=== PATIENT | female | born 1965 | race Caucasian/White ===

== ENCOUNTER 2020-09-11 21:33 | Inpatient (IN) | payer MEDICAID, MEDICARE ==
[~2020-09-11] VITALS: Ht 170.2 cm; Wt 102.0 kg
[2020-09-11] MEDS ORDERED: SODIUM CHLORIDE FLUSH 10ML SYR IVF ONE (22:00)
[2020-09-11] MEDS ORDERED: SODIUM CHLORIDE 0.9% 1,000 ML IV ONE (22:00)
[2020-09-11 22:24] LABS: BASOPHILS % (AUTO) 0 % (0-1); EOSINOPHILS % (AUTO) 1 % (1-7); LYMPHOCYTES % (AUTO) 11 % (22-44); MEAN CORPUSCULAR HEMOGLOBIN 41.2 pg (27.0-34.8); MEAN CORPUSCULAR HGB CONC 34.7 g/dL (32.4-35.8); MEAN PLATELET VOLUME 10.3 fL (7.4-10.4); MONOCYTES % (AUTO) 10 % (2-9); NEUTROPHILS % (AUTO) 77 % (42-75); RED BLOOD COUNT 2.81 x10^6/uL (3.82-5.3); RED CELL DISTRIBUTION WIDTH 16.5 % (9.6-15.2)
[2020-09-11 22:36] LABS: ALANINE AMINOTRANSFERASE 41 U/L (12-78); ALBUMIN 1.2 g/dL (3.4-5.0); ANION GAP 4 mmol/L (5-15); CALCIUM 7.9 mg/dL (8.5-10.1); CHLORIDE 104 mmol/L (98-107); CREATININE 0.99 mg/dL (0.55-1.02)
[2020-09-11 22:37] LABS: INTERNATIONAL NORMALIZED RATIO 1.7 (0.93-1.1); PROTHROMBIN TIME 17.7 Seconds (9.6-11.5)
[2020-09-11 22:38] LABS: ALKALINE PHOSPHATASE 126 U/L (45-117); TOTAL PROTEIN 6.4 g/dL (6.4-8.2)
[2020-09-11 22:55] LABS: PLATELET COUNT 39 x10^3/uL (130-400)
[2020-09-11] MEDS ORDERED: PLEASE ENTER ALLERGIES MC SCH (23:00)
[2020-09-11] MEDS ORDERED: LACTULOSE 10 GM/15 ML UDC PO ONE (23:00)
[2020-09-11 23:16] LABS: BILIRUBIN,TOTAL 17.8 mg/dL (0.2-1.0)
--- NOTE | 2020-09-11 23:21 | NUR ---
Karina TEE notified plt - 40 and bilirubin of 17.8 for critical results
--- NOTE | 2020-09-11 23:57 | NUR ---
PATIENT HYPOTENSIVE, BUT ASYMPTOMATIC. PATIENT ALERT AND ORIENTED TIMES 4 AND ANSWERING QUESTIONS CALMLY AND COOPERATIVELY.
--- NOTE | 2020-09-11 23:59 | NUR ---
RADHA BADILLO AWARE OF HYPOTENSION AND INSTRUCTED RN TO PLACE ORDER FOR ALBUMIN 25% 100ML. ABY SAID GOAL BP IS IN THE 80'S SYSTOLIC
[2020-09-12] MEDS ORDERED: POTASSIUM CHLORIDE 20 MEQ TAB.ER.PRT PO ONE
[2020-09-12] MEDS: LACTULOSE 20 GM/30 ML UDC PO SCH ×3 (00:05→20:49)
[2020-09-12] MEDS ORDERED: POTASSIUM CHLORIDE 20 MEQ TAB.ER.PRT ONE (00:13)
[2020-09-12] MEDS ORDERED: ALBUMIN HUMAN 25% 100 ML IV ONE (00:30)
[2020-09-12] MEDS ORDERED: PLEASE ENTER ALLERGIES MC SCH ×2 (00:30→01:00)
[2020-09-12 01:24] LABS: BILIRUBIN, DIRECT 13.4 mg/dL (0.1-0.2)
[2020-09-12 02:00] VITALS: BP 87/53
[2020-09-12] MEDS: SODIUM CHLORIDE 0.9% 1,000 ML IV SCH ×3 (02:44→20:49)
[2020-09-12] MEDS ORDERED: MELATONIN 5 MG TABLET PO ONE ×2 (03:30→21:00)
[2020-09-12 06:58] VITALS: BP 87/51
[2020-09-12] MEDS ORDERED: PARO20TA98 PO (09:23)
[2020-09-12 10:41] LABS: ALANINE AMINOTRANSFERASE 39 U/L (12-78); ALBUMIN 1.5 g/dL (3.4-5.0); ANION GAP 7 mmol/L (5-15); CHLORIDE 108 mmol/L (98-107)
[2020-09-12 10:43] LABS: ALKALINE PHOSPHATASE 116 U/L (45-117)
[2020-09-12 10:53] LABS: BASOPHILS % (AUTO) 2 % (0-1); EOSINOPHILS % (AUTO) 2 % (1-7); LYMPHOCYTES % (AUTO) 7 % (22-44); MEAN CORPUSCULAR HEMOGLOBIN 41.4 pg (27.0-34.8); MEAN CORPUSCULAR HGB CONC 34.9 g/dL (32.4-35.8); MEAN PLATELET VOLUME 10.6 fL (7.4-10.4); MONOCYTES % (AUTO) 11 % (2-9); NEUTROPHILS % (AUTO) 79 % (42-75); RED CELL DISTRIBUTION WIDTH 16.4 % (9.6-15.2)
[2020-09-12 10:58] LABS: PLATELET COUNT 33 x10^3/uL (130-400)
[2020-09-12 11:12] LABS: CREATININE 0.97 mg/dL (0.55-1.02)
[2020-09-12 11:13] LABS: TOTAL PROTEIN 6.2 g/dL (6.4-8.2)
[2020-09-12 11:16] LABS: BILIRUBIN,TOTAL 18.5 mg/dL (0.2-1.0)
[2020-09-12 13:59] VITALS: BP 100/63
[2020-09-12 20:01] VITALS: BP 92/57
[2020-09-12] MEDS: MELATONIN 5 MG TABLET PO PRN (20:50)
[2020-09-13] VITALS: BP 94/58
[2020-09-13] MEDS: SODIUM CHLORIDE 0.9% 1,000 ML IV SCH ×2 (05:53→17:00)
[2020-09-13 05:55] LABS: BASOPHILS % (AUTO) 1 % (0-1); EOSINOPHILS % (AUTO) 2 % (1-7); LYMPHOCYTES % (AUTO) 10 % (22-44); MEAN CORPUSCULAR HEMOGLOBIN 41.7 pg (27.0-34.8); MEAN CORPUSCULAR HGB CONC 35.1 g/dL (32.4-35.8); MEAN PLATELET VOLUME 10.8 fL (7.4-10.4); MONOCYTES % (AUTO) 10 % (2-9); NEUTROPHILS % (AUTO) 77 % (42-75); RED BLOOD COUNT 2.85 x10^6/uL (3.82-5.3); RED CELL DISTRIBUTION WIDTH 16.2 % (9.6-15.2)
[2020-09-13 06:07] LABS: CHLORIDE 110 mmol/L (98-107)
[2020-09-13 06:12] LABS: ALBUMIN 1.5 g/dL (3.4-5.0); ANION GAP 4 mmol/L (5-15); CALCIUM 8.3 mg/dL (8.5-10.1); CREATININE 0.77 mg/dL (0.55-1.02)
[2020-09-13 06:15] LABS: PLATELET COUNT 35 x10^3/uL (130-400)
[2020-09-13 06:16] LABS: ANISOCYTOSIS 1+
[2020-09-13 06:17] LABS: <PLATELET ESTIMATE> DECREASED; <PLT MORPHOLOGY> NORMAL PLT MORPH
[2020-09-13] MEDS: FUROSEMIDE 20 MG TABLET PO SCH (09:19)
[2020-09-13] MEDS: SPIRONOLACTONE 25 MG TABLET PO SCH (09:19)
[2020-09-13] MEDS: LACTULOSE 20 GM/30 ML UDC PO SCH ×2 (09:19→20:57)
[2020-09-13 10:13] VITALS: BP 92/59
[2020-09-13] MEDS ORDERED: ONDA-89 PO (10:23)
[2020-09-13] MEDS ORDERED: FURO20TA3 PO (10:23)
[2020-09-13] MEDS ORDERED: SPIR100T4 PO (10:23)
[2020-09-13] MEDS ORDERED: NITR100C6 PO (10:23)
[2020-09-13 13:42] VITALS: BP 95/58
[2020-09-13] MEDS: ONDANSETRON 2MG/ML, 2ML IVPush PRN (13:59)
[2020-09-13] MEDS: HYDROcodone/APAP 5/325 TABLET PO PRN (16:07)
[2020-09-13 19:33] VITALS: BP 105/65
[2020-09-13 19:48] LABS: MICROSCOPIC INDICATED
[2020-09-13] MEDS: MELATONIN 5 MG TABLET PO PRN (20:57)
[2020-09-14 00:37] VITALS: BP 90/54
[2020-09-14] MEDS: HYDROcodone/APAP 5/325 TABLET PO PRN ×3 (00:44→19:58)
[2020-09-14 06:42] LABS: MEAN CORPUSCULAR HGB CONC 34.2 g/dL (32.4-35.8); MEAN PLATELET VOLUME 10.5 fL (7.4-10.4); RED CELL DISTRIBUTION WIDTH 17.1 % (9.6-15.2)
[2020-09-14 06:44] LABS: ALBUMIN 1.5 g/dL (3.4-5.0); ANION GAP 12 mmol/L (5-15); CALCIUM 8.5 mg/dL (8.5-10.1); CHLORIDE 108 mmol/L (98-107); PLATELET COUNT 36 x10^3/uL (130-400)
[2020-09-14 06:45] LABS: CREATININE 1.29 mg/dL (0.55-1.02)
[2020-09-14 07:05] LABS: MONOS#(MANUAL) 0.25 x10^3/uL (0.3-2.7); MONOS% (MANUAL) 2 % (2-9)
[2020-09-14 07:06] LABS: ANISOCYTOSIS 1+; BAND#(MANUAL) 3.72 x10^3/uL; BANDS%(MANUAL) 30 % (0-7); LYMPH#(MANUAL) 0.37 x10^3/uL (1-3.4); LYMPHS% (MANUAL) 3 % (22-44); SEG#(MANUAL) 8.06 x10^3/uL (1.8-6.8); SEGS% (MANUAL) 65 % (42-75)
[2020-09-14 07:07] LABS: <PLATELET ESTIMATE> DECREASED; <PLT MORPHOLOGY> NORMAL PLT MORPH
[2020-09-14 07:55] VITALS: BP 85/51
[2020-09-14] MEDS: LACTULOSE 20 GM/30 ML UDC PO SCH ×2 (08:02→21:00)
[2020-09-14] MEDS: CEFTRIAXONE 1,000 MG in DEXTROSE 5% 50 ML IVPB SCH (08:02)
[2020-09-14] MEDS: SPIRONOLACTONE 25 MG TABLET PO SCH (08:02)
[2020-09-14] MEDS: FUROSEMIDE 20 MG TABLET PO SCH (08:02)
[2020-09-14] MEDS ORDERED: SPIR100T4 PO (09:47)
[2020-09-14] MEDS ORDERED: FURO20TA3 PO (09:47)
[2020-09-14] MEDS ORDERED: AMOX500T PO (09:52)
[2020-09-14 12:29] LABS: MICROSCOPIC INDICATED
[2020-09-14 19:26] VITALS: BP 84/50
[2020-09-14] MEDS: MELATONIN 5 MG TABLET PO PRN (22:14)
[2020-09-15 00:49] VITALS: BP 81/44
[2020-09-15 06:10] LABS: MEAN CORPUSCULAR HEMOGLOBIN 40.8 pg (27.0-34.8); MEAN CORPUSCULAR HGB CONC 34.4 g/dL (32.4-35.8); RED BLOOD COUNT 2.89 x10^6/uL (3.82-5.3); RED CELL DISTRIBUTION WIDTH 16.6 % (9.6-15.2)
[2020-09-15 06:32] VITALS: BP 85/48
[2020-09-15 06:42] LABS: PLATELET COUNT 37 x10^3/uL (130-400)
[2020-09-15 06:43] LABS: ALBUMIN 1.3 g/dL (3.4-5.0); ANION GAP 5 mmol/L (5-15); CALCIUM 8.4 mg/dL (8.5-10.1); CHLORIDE 106 mmol/L (98-107)
[2020-09-15 06:44] LABS: BAND#(MANUAL) 1.58 x10^3/uL; BANDS%(MANUAL) 18 % (0-7); EOS#(MANUAL) 0.18 x10^3/uL (0.0-0.4); EOS% (MANUAL) 2 % (1-7); LYMPH#(MANUAL) 0.44 x10^3/uL (1-3.4); LYMPHS% (MANUAL) 5 % (22-44); MONOS% (MANUAL) 8 % (2-9); SEGS% (MANUAL) 67 % (42-75)
[2020-09-15 06:45] LABS: <PLATELET ESTIMATE> DECREASED; <PLT MORPHOLOGY> NORMAL PLT MORPH; ANISOCYTOSIS 1+
[2020-09-15 06:46] LABS: CREATININE 1.28 mg/dL (0.55-1.02)
[2020-09-15] MEDS: CEFTRIAXONE 1,000 MG in DEXTROSE 5% 50 ML IVPB SCH (07:52)
[2020-09-15] MEDS: LACTULOSE 20 GM/30 ML UDC PO SCH ×2 (09:00→20:31)
[2020-09-15] MEDS ORDERED: AZITHROMYCIN 500 MG TABLET PO ONE (11:00)
[2020-09-15] MEDS ORDERED: POTASSIUM CHLORIDE 20 MEQ TAB.ER.PRT PO ONE (12:30)
[2020-09-15 13:52] VITALS: BP 85/48
[2020-09-15] MEDS ORDERED: LIDOCAINE 1%, 10ML ONE (14:53)
[2020-09-15] MEDS: HYDROcodone/APAP 5/325 TABLET PO PRN ×2 (16:16→23:21)
[2020-09-15] MEDS: ONDANSETRON 2MG/ML, 2ML IVPush PRN ×2 (16:16→23:20)
[2020-09-15 19:29] VITALS: BP 84/45
[2020-09-16 00:14] VITALS: BP 74/38
[2020-09-16] MEDS ORDERED: PEDS NS BOLUS IV.SOLN 20ML/KG IVBOLUS ONE (00:30)
[2020-09-16] MEDS ORDERED: SODIUM CHLORIDE 0.9%, 500ML IVBOLUS ONE (00:30)
[2020-09-16] MEDS ORDERED: ALBUMIN HUMAN 5% 500 ML IV ONE (00:30)
[2020-09-16 06:42] VITALS: BP 87/51
[2020-09-16] MEDS: AZITHROMYCIN 250 MG TABLET PO SCH (07:48)
[2020-09-16] MEDS: CEFTRIAXONE 1,000 MG in DEXTROSE 5% 50 ML IVPB SCH (07:48)
[2020-09-16] MEDS: LACTULOSE 20 GM/30 ML UDC PO SCH ×2 (07:49→20:32)
[2020-09-16 07:55] LABS: BASOPHILS % (AUTO) 1 % (0-1); EOSINOPHILS % (AUTO) 1 % (1-7); LYMPHOCYTES % (AUTO) 9 % (22-44); MEAN CORPUSCULAR HEMOGLOBIN 40.9 pg (27.0-34.8); MEAN CORPUSCULAR HGB CONC 34.6 g/dL (32.4-35.8); MEAN PLATELET VOLUME 9.1 fL (7.4-10.4); MONOCYTES % (AUTO) 11 % (2-9); NEUTROPHILS % (AUTO) 79 % (42-75); RED BLOOD COUNT 2.85 x10^6/uL (3.82-5.3); RED CELL DISTRIBUTION WIDTH 16.5 % (9.6-15.2)
[2020-09-16 08:05] LABS: ALBUMIN 1.4 g/dL (3.4-5.0); ANION GAP 6 mmol/L (5-15); CALCIUM 7.8 mg/dL (8.5-10.1); CHLORIDE 106 mmol/L (98-107); CREATININE 0.94 mg/dL (0.55-1.02)
[2020-09-16 08:24] LABS: PLATELET COUNT 27 x10^3/uL (130-400)
[2020-09-16 09:18] LABS: <PLATELET ESTIMATE> DECREASED; <PLT MORPHOLOGY> NORMAL PLT MORPH; ANISOCYTOSIS 1+
[2020-09-16 12:29] VITALS: BP 93/58
[2020-09-16] MEDS: HYDROcodone/APAP 5/325 TABLET PO PRN (17:41)
[2020-09-16 19:47] VITALS: BP 99/53
[2020-09-17 02:00] VITALS: BP 89/53
[2020-09-17] MEDS: HYDROcodone/APAP 5/325 TABLET PO PRN ×2 (04:04→16:03)
[2020-09-17] MEDS: ONDANSETRON 2MG/ML, 2ML IVPush PRN (04:04)
[2020-09-17 06:29] VITALS: BP 94/57
[2020-09-17] MEDS: LACTULOSE 20 GM/30 ML UDC PO SCH (08:07)
[2020-09-17] MEDS: CEFTRIAXONE 1,000 MG in DEXTROSE 5% 50 ML IVPB SCH (08:07)
[2020-09-17] MEDS: AZITHROMYCIN 250 MG TABLET PO SCH (08:07)
[2020-09-17 12:28] VITALS: BP 92/53
== END 2020-09-17 16:05 | disposition home or self-care (01) | DRG 432 ==
LOC: ED 09-12 00:23 → EDIP 09-12 00:49 → 3N 09-12 00:50
PROVIDERS: ADMIT Student in an Organized Health Care Education/Training Program; ATTEND Internal Medicine
PROC: 0T9B70Z Drainage of Bladder with Drainage Device, Via Natural or Artificial Opening (ICD-10-PCS; 2020-09-13)
PROC: 0W9G30Z Drainage of Peritoneal Cavity with Drainage Device, Percutaneous Approach (ICD-10-PCS; principal; 2020-09-15)
DX: K70.31 Alcoholic cirrhosis of liver with ascites (principal); E43 Unspecified severe protein-calorie malnutrition; E87.1 Hypo-osmolality and hyponatremia; D68.9 Coagulation defect, unspecified; N17.9 Acute kidney failure, unspecified; N39.0 Urinary tract infection, site not specified; N81.10 Cystocele, unspecified; K72.90 Hepatic failure, unspecified without coma; D50.9 Iron deficiency anemia, unspecified; D69.6 Thrombocytopenia, unspecified; E87.6 Hypokalemia; F10.20 Alcohol dependence, uncomplicated; F17.210 Nicotine dependence, cigarettes, uncomplicated; F32.9 Major depressive disorder, single episode, unspecified; F41.1 Generalized anxiety disorder; H40.9 Unspecified glaucoma; M19.90 Unspecified osteoarthritis, unspecified site; Z82.3 Family history of stroke; Z82.49 Family history of ischemic heart disease and other diseases of the circulatory system; Z83.3 Family history of diabetes mellitus; Z91.14 Patient's other noncompliance with medication regimen; Z86.73 Personal history of transient ischemic attack (TIA), and cerebral infarction without residual deficits; Z88.5 Allergy status to narcotic agent; Z88.2 Allergy status to sulfonamides; Z88.8 Allergy status to other drugs, medicaments and biological substances
CPT/HCPCS: 36415; 49083; 71045; 80053; 80069; 81001; 82140; 82248; 82607; 83690; 85025; 85610; 85730; 87077; 87086; 87186; 99285; G0378; J0696; J2405; P9045; P9047; J7030; J7040

== ENCOUNTER 2020-10-05 16:40 | Inpatient (IN) | payer MEDICARE ==
[~2020-10-05] VITALS: Ht 170.2 cm; Wt 103.3 kg
[~2020-10-05 16:40] MED LIST: AMOX500T PO; ETOMIDATE 20 MG/10 ML ONE; FURO20TA3 PO; MIDAZOLAM 1 MG/ML, 5ML ONE; NITR100C6 PO; ONDA-89 PO; PARO20TA98 PO; PROPOFOL 10 MG/ML, 100ML IV ONE; SPIR100T4 PO; VECURONIUM 10 MG ONE
--- NOTE | 2020-10-05 16:45 | NUR ---
BIB EMS FROM [facility] [place] FOR SOB AND ASCITES OF ABDOMEN. PT STATES SOB X 2 DAYS WITH EMS FINDING PT WITH ROOM AIR OF 68% PLACED ON 15 LPM FOR SAT OF 90. PT TESTED FOR COVID AT [facility] [place] WITH POSITIVE TEST. PT IS NON DIABETIC FOUND WITH FOUND WITH BGL OF 58 100 ML D10 ADMIN FOLLOW UP BGL 47. 250ML OF D 10 GIVEN RECHECK BGL OF 103. 1 GRAM ROCEPHIN GIVEN AT FACILITY AND 500 OF AZITHROMYCIN. 10 MG DECADRON GIVEN AND IRVERMECTIN PO. PT PLACED ON OPTIFLOW SETTINGS OF 50 L AND 100% BY RT.
[2020-10-05 17:42] LABS: MEAN CORPUSCULAR HEMOGLOBIN 39.8 pg (27.0-34.8); MEAN CORPUSCULAR HGB CONC 33.9 g/dL (32.4-35.8); RED BLOOD COUNT 3.06 x10^6/uL (3.82-5.3); RED CELL DISTRIBUTION WIDTH 16.1 % (9.6-15.2)
[2020-10-05 17:54] LABS: ALANINE AMINOTRANSFERASE 70 U/L (12-78); ANION GAP 8 mmol/L (5-15); CALCIUM 7.7 mg/dL (8.5-10.1); CHLORIDE 108 mmol/L (98-107); CREATININE 1.25 mg/dL (0.55-1.02)
[2020-10-05 17:56] LABS: ALKALINE PHOSPHATASE 189 U/L (45-117); BILIRUBIN,TOTAL 10.5 mg/dL (0.2-1.0); TOTAL PROTEIN 6.2 g/dL (6.4-8.2)
[2020-10-05] MEDS ORDERED: FENTANYL PF 100 MCG/2ML ONE (18:02)
--- NOTE | 2020-10-05 18:05 | NUR ---
PT EXPRESSES PAIN AT 10/10 ALL OVER BODY. MD MADE AWARE. VERBAL ORDER FOR 50 MCG OF FENTANYL RECIEVED.
[2020-10-05 18:07] LABS: INTERNATIONAL NORMALIZED RATIO 1.93 (0.93-1.1)
[2020-10-05 18:19] LABS: PLATELET COUNT 14 x10^3/uL (130-400)
[2020-10-05] MEDS ORDERED: FUROSEMIDE 40 MG/4 ML IV ONE (18:30)
[2020-10-05] MEDS ORDERED: ALBUMIN HUMAN 25% 100 ML IV ONE (18:30)
[2020-10-05 18:31] LABS: <PLATELET ESTIMATE> DECREASED; BAND#(MANUAL) 0.92 x10^3/uL; BANDS%(MANUAL) 12 % (0-7); LYMPH#(MANUAL) 0.31 x10^3/uL (1-3.4); LYMPHS% (MANUAL) 4 % (22-44); METAMYELOCYTES# (MANUAL) 0.15 x10^3/uL (0-0); METAMYELOCYTES% (MANUAL) 2 % (0-1); MONOS#(MANUAL) 0.46 x10^3/uL (0.3-2.7); MONOS% (MANUAL) 6 % (2-9); SEG#(MANUAL) 5.85 x10^3/uL (1.8-6.8); SEGS% (MANUAL) 76 % (42-75)
[2020-10-05 18:32] LABS: <PLT MORPHOLOGY> NORMAL PLT MORPH; ANISOCYTOSIS 1+
[2020-10-05] MEDS ORDERED: LIDOCAINE 1%, 10ML ONE (18:35)
--- NOTE | 2020-10-05 19:02 | NUR ---
ALBUMIN STARTED. HOSPITALIST BEDSIDE FOR ASSESSMENT. IR IN ROOM PEFORMING PARACENTESIS.
[2020-10-05] MEDS: NOREPINEPHRINE 8 MG in SODIUM CHLORIDE 0.9% 242 ML IV PRN (19:12)
--- NOTE | 2020-10-05 19:13 | NUR ---
LEVOPHED OK TO RUN VIA PIV PER
[2020-10-05] MEDS ORDERED: PANTOPRAZOLE 40 MG IV ONE (19:26)
[2020-10-05] MEDS ORDERED: DEXAMETHASONE 4 MG/ML, 1ML ONE (19:26)
[2020-10-05] MEDS ORDERED: GLUCAGON 1 MG IM PRN (19:30)
[2020-10-05] MEDS ORDERED: LABETALOL 5MG/ML, 20ML IVPush PRN (19:30)
[2020-10-05] MEDS ORDERED: PIPERACILLIN/TAZO 4.5 GM in DEXTROSE 5% 50 ML IVPB SCH (19:30)
[2020-10-05] MEDS ORDERED: PHARMACY MAY ADJ FOR RENAL FX MC PRN (19:30)
[2020-10-05] MEDS ORDERED: DEXTROSE 4 GM TAB.CHEW PO PRN (19:30)
[2020-10-05] MEDS ORDERED: LACTULOSE 10 GM/15 ML UDC PO PRN (19:30)
[2020-10-05] MEDS ORDERED: ACETAMINOPHEN 500 MG TABLET PO PRN (19:30)
[2020-10-05] MEDS ORDERED: HEPARIN 5,000 UNITS/ML, 1ML SQ SCH (19:30)
--- NOTE | 2020-10-05 19:34 | NUR ---
7.7 LITERS OF FLUID PULLED OFF PT. PT RESTING IN GURNEY LAYING ON RIGHT SIDE FOR COMFORT.
[2020-10-05] MEDS: DEXAMETHASONE 4 MG/ML, 1ML IVPush SCH (19:42)
[2020-10-05] MEDS: PANTOPRAZOLE 40 MG IV IV SCH (19:42)
[2020-10-05] MEDS ORDERED: ONDANSETRON 2MG/ML, 2ML ONE (19:48)
[2020-10-05] MEDS: ONDANSETRON 2MG/ML, 2ML IVPB PRN (19:51)
[2020-10-05] MEDS ORDERED: PIPERACILLIN/TAZO 4.5 GM in DEXTROSE 5% 100 ML IVPB SCH (20:00)
[2020-10-05] MEDS ORDERED: FENTANYL PF 100 MCG/2ML IVPush PRN (20:00)
[2020-10-05 20:16] VITALS: BP 113/53
[2020-10-05 20:34] VITALS: BP 118/49
[2020-10-05 21:00] VITALS: BP 100/33
[2020-10-05] MEDS: ASCORBIC ACID 500 MG TABLET PO SCH (21:57)
[2020-10-05] MEDS: INSULIN LISPRO 100 UNITS/ML, PEN SQ-INSULIN SCH (22:11)
[2020-10-05] MEDS: SODIUM CHLORIDE FLUSH 10ML SYR IVF SCH (22:11)
[2020-10-05 22:13] VITALS: BP 85/50
[2020-10-05 22:15] VITALS: BP 100/56
[2020-10-05] MEDS ORDERED: REMDESIVIR 100 MG IV SCH (22:30)
[2020-10-05] MEDS ORDERED: REMDESIVIR 200 MG in SODIUM CHLORIDE 0.9% 250 ML IVPB ONE (23:00)
[2020-10-05] MEDS: ALBUMIN HUMAN 25% 100 ML IV SCH (23:38)
[2020-10-06] MEDS ORDERED: PIPERACILLIN/TAZO 4.5 GM in DEXTROSE 5% 100 ML IVPB SCH (02:00)
[2020-10-06] MEDS: ONDANSETRON 2MG/ML, 2ML IVPB PRN ×2 (02:12→09:47)
[2020-10-06] MEDS: DEXAMETHASONE 4 MG/ML, 1ML IVPush SCH (02:12)
[2020-10-06] MEDS: NOREPINEPHRINE 8 MG in SODIUM CHLORIDE 0.9% 242 ML IV PRN ×2 (05:13→20:18)
[2020-10-06 05:14] LABS: MEAN CORPUSCULAR HGB CONC 33.9 g/dL (32.4-35.8); MEAN PLATELET VOLUME 9.4 fL (7.4-10.4); RED BLOOD COUNT 3.13 x10^6/uL (3.82-5.3)
[2020-10-06 05:16] LABS: ALANINE AMINOTRANSFERASE 62 U/L (12-78); ALBUMIN 1.7 g/dL (3.4-5.0); ANION GAP 10 mmol/L (5-15); CALCIUM 7.8 mg/dL (8.5-10.1); CHLORIDE 107 mmol/L (98-107); CREATININE 1.34 mg/dL (0.55-1.02)
[2020-10-06 05:19] LABS: ALKALINE PHOSPHATASE 172 U/L (45-117); BILIRUBIN,TOTAL 11.1 mg/dL (0.2-1.0); TOTAL PROTEIN 6.7 g/dL (6.4-8.2)
[2020-10-06 05:31] LABS: PLATELET COUNT 22 x10^3/uL (130-400)
[2020-10-06 06:02] LABS: BAND#(MANUAL) 2.34 x10^3/uL; BANDS%(MANUAL) 19 % (0-7); LYMPH#(MANUAL) 0.62 x10^3/uL (1-3.4); LYMPHS% (MANUAL) 5 % (22-44)
[2020-10-06 06:03] LABS: MONOS#(MANUAL) 0.12 x10^3/uL (0.3-2.7); MONOS% (MANUAL) 1 % (2-9); SEG#(MANUAL) 9.23 x10^3/uL (1.8-6.8); SEGS% (MANUAL) 75 % (42-75)
[2020-10-06 06:04] LABS: <PLATELET ESTIMATE> DECREASED; <PLT MORPHOLOGY> NORMAL PLT MORPH; ANISOCYTOSIS 2+
[2020-10-06] MEDS: INSULIN LISPRO 100 UNITS/ML, PEN SQ-INSULIN SCH ×4 (06:23→21:00)
[2020-10-06] MEDS: ALBUMIN HUMAN 25% 100 ML IV SCH ×3 (06:33→21:25)
[2020-10-06] MEDS ORDERED: AZITHROMYCIN 500 MG in SODIUM CHLORIDE 0.9% 250 ML IV SCH (08:00)
[2020-10-06] MEDS ORDERED: ASCORBIC ACID 250 MG TAB ONE (08:00)
[2020-10-06] MEDS: ZINC SULFATE 220 MG CAPSULE PO SCH (08:57)
[2020-10-06] MEDS: CEFTRIAXONE 2 GM in DEXTROSE 5% 50 ML IVPB SCH (08:57)
[2020-10-06] MEDS: ASCORBIC ACID 500 MG TABLET PO SCH ×2 (08:57→21:25)
[2020-10-06] MEDS: SODIUM CHLORIDE FLUSH 10ML SYR IVF SCH ×2 (08:58→21:25)
[2020-10-06] MEDS: MIDODRINE 5 MG TABLET PO SCH ×3 (08:58→21:25)
[2020-10-06] MEDS ORDERED: REMDESIVIR 100 MG IV SCH (09:00)
[2020-10-06] MEDS ORDERED: HYDROmorphone 1 MG/ML, 1ML INJ IV PRN (10:30)
[2020-10-06] MEDS ORDERED: LORazepam 2 MG/ML, 1ML IVPush PRN (10:30)
[2020-10-06] MEDS ORDERED: PHARMACY MAY ADJ FOR RENAL FX MC SCH (14:00)
[2020-10-06] MEDS ORDERED: LIDOCAINE-MPF 1%, 2ML ENDO PRN (14:00)
[2020-10-06] MEDS ORDERED: MIDAZOLAM HCL 50 MG in SODIUM CHLORIDE 0.9% 40 ML IV PRN (14:00)
[2020-10-06] MEDS: METRONIDAZOLE PMX 500MG/100ML 100 ML IV SCH ×2 (14:59→21:25)
[2020-10-06] MEDS ORDERED: SODIUM BICARB 8.4%, 50ML SYRINGE ONE (15:11)
[2020-10-06] MEDS ORDERED: SODIUM BICARBONATE 1 MEQ/ML, 50ML VIAL IVPush ONE (15:30)
[2020-10-06] MEDS ORDERED: VECURONIUM 10 MG ONE (18:40)
[2020-10-06] MEDS ORDERED: VECURONIUM 10 MG IVPush ONE (19:30)
[2020-10-06] MEDS: VECURONIUM 50 MG in SODIUM CHLORIDE 0.9% 50 ML IV PRN (20:06)
[2020-10-06] MEDS: FENTANYL PF 1,000 MCG in SODIUM CHLORIDE 0.9% 80 ML IV PRN (20:16)
[2020-10-06] MEDS: PROPOFOL 100 ML IV PRN (20:19)
[2020-10-06] MEDS: PANTOPRAZOLE 40 MG IV IV SCH (21:25)
[2020-10-07] MEDS: REMDESIVIR 100 MG in SODIUM CHLORIDE 0.9% 250 ML IVPB SCH ×2 (00:09→23:27)
[2020-10-07] MEDS: VECURONIUM 50 MG in SODIUM CHLORIDE 0.9% 50 ML IV PRN (02:40)
[2020-10-07] MEDS: INSULIN LISPRO 100 UNITS/ML, PEN SQ-INSULIN SCH ×4 (03:00→21:00)
[2020-10-07 04:01] LABS: ALBUMIN 2.2 g/dL (3.4-5.0); ANION GAP 10 mmol/L (5-15); CALCIUM 7.3 mg/dL (8.5-10.1); CHLORIDE 107 mmol/L (98-107)
[2020-10-07 04:04] LABS: ALANINE AMINOTRANSFERASE 45 U/L (12-78); ALKALINE PHOSPHATASE 130 U/L (45-117); BILIRUBIN,TOTAL 10.1 mg/dL (0.2-1.0); CREATININE 1.75 mg/dL (0.55-1.02); TOTAL PROTEIN 6.2 g/dL (6.4-8.2)
[2020-10-07 04:08] LABS: MEAN CORPUSCULAR HEMOGLOBIN 40.6 pg (27.0-34.8); MEAN CORPUSCULAR HGB CONC 34.3 g/dL (32.4-35.8); MEAN PLATELET VOLUME 10.5 fL (7.4-10.4); RED BLOOD COUNT 2.67 x10^6/uL (3.82-5.3); RED CELL DISTRIBUTION WIDTH 16.5 % (9.6-15.2)
[2020-10-07 04:23] LABS: PLATELET COUNT 23 x10^3/uL (130-400)
[2020-10-07] MEDS: ALBUMIN HUMAN 25% 100 ML IV SCH ×3 (05:38→21:32)
[2020-10-07] MEDS: PROPOFOL 100 ML IV PRN ×4 (05:38→23:26)
[2020-10-07] MEDS: METRONIDAZOLE PMX 500MG/100ML 100 ML IV SCH ×3 (05:38→21:26)
[2020-10-07 05:39] LABS: BAND#(MANUAL) 2.45 x10^3/uL; BANDS%(MANUAL) 19 % (0-7); LYMPH#(MANUAL) 0.39 x10^3/uL (1-3.4); LYMPHS% (MANUAL) 3 % (22-44); MONOS#(MANUAL) 0.65 x10^3/uL (0.3-2.7); MONOS% (MANUAL) 5 % (2-9); SEG#(MANUAL) 9.42 x10^3/uL (1.8-6.8); SEGS% (MANUAL) 73 % (42-75)
[2020-10-07 05:40] LABS: <PLATELET ESTIMATE> DECREASED; <PLT MORPHOLOGY> NORMAL PLT MORPH; ANISOCYTOSIS 2+
[2020-10-07] MEDS: CEFTRIAXONE 2 GM in DEXTROSE 5% 50 ML IVPB SCH (08:17)
[2020-10-07] MEDS ORDERED: ASCORBIC ACID 250 MG TAB ONE (08:34)
[2020-10-07] MEDS: ASCORBIC ACID 500 MG TABLET PO SCH ×2 (09:00→21:25)
[2020-10-07] MEDS: MIDODRINE 5 MG TABLET PO SCH ×3 (09:18→21:25)
[2020-10-07] MEDS: ZINC SULFATE 220 MG CAPSULE PO SCH (09:19)
[2020-10-07] MEDS: DEXAMETHASONE 4 MG/ML, 1ML IVPush SCH (09:19)
[2020-10-07] MEDS: SODIUM CHLORIDE FLUSH 10ML SYR IVF SCH ×2 (09:20→21:25)
[2020-10-07] MEDS: AZITHROMYCIN 500 MG TABLET PO SCH (09:20)
[2020-10-07] MEDS: NOREPINEPHRINE 8 MG in SODIUM CHLORIDE 0.9% 242 ML IV PRN ×2 (09:20→23:26)
[2020-10-07] MEDS: FENTANYL PF 1,000 MCG in SODIUM CHLORIDE 0.9% 80 ML IV PRN ×2 (11:14→23:27)
[2020-10-07] MEDS: PANTOPRAZOLE 40 MG IV IV SCH (21:25)
[2020-10-08] MEDS: INSULIN LISPRO 100 UNITS/ML, PEN SQ-INSULIN SCH ×4 (03:00→21:00)
[2020-10-08 05:26] LABS: POTASSIUM,URINE RANDOM 54 mmol/L
[2020-10-08 05:27] LABS: CHLORIDE,URINE RANDOM < 10 mmol/L; SODIUM,URINE RANDOM < 5 mmol/L
[2020-10-08 05:29] LABS: MEAN CORPUSCULAR HEMOGLOBIN 40.7 pg (27.0-34.8); MEAN CORPUSCULAR HGB CONC 34.1 g/dL (32.4-35.8); MEAN PLATELET VOLUME 9.3 fL (7.4-10.4); RED BLOOD COUNT 2.46 x10^6/uL (3.82-5.3)
[2020-10-08 05:32] LABS: PLATELET COUNT 17 x10^3/uL (130-400)
[2020-10-08 05:34] LABS: ALANINE AMINOTRANSFERASE 42 U/L (12-78); ALBUMIN 2.8 g/dL (3.4-5.0); ANION GAP 9 mmol/L (5-15); CALCIUM 7.5 mg/dL (8.5-10.1); CHLORIDE 110 mmol/L (98-107); CREATININE 1.97 mg/dL (0.55-1.02)
[2020-10-08 05:36] LABS: ALKALINE PHOSPHATASE 113 U/L (45-117); BILIRUBIN,TOTAL 9.3 mg/dL (0.2-1.0); TOTAL PROTEIN 6.2 g/dL (6.4-8.2)
[2020-10-08 05:46] LABS: MICROSCOPIC INDICATED
[2020-10-08 05:50] LABS: <PLATELET ESTIMATE> DECREASED; <PLT MORPHOLOGY> NORMAL PLT MORPH; ANISOCYTOSIS 2+; BAND#(MANUAL) 1.59 x10^3/uL; BANDS%(MANUAL) 15 % (0-7); LYMPH#(MANUAL) 0.53 x10^3/uL (1-3.4); LYMPHS% (MANUAL) 5 % (22-44); MONOS#(MANUAL) 0.32 x10^3/uL (0.3-2.7); MONOS% (MANUAL) 3 % (2-9); SEG#(MANUAL) 8.16 x10^3/uL (1.8-6.8); SEGS% (MANUAL) 77 % (42-75)
[2020-10-08 05:51] LABS: OVALOCYTES 1+
[2020-10-08] MEDS: METRONIDAZOLE PMX 500MG/100ML 100 ML IV SCH ×3 (06:22→21:24)
[2020-10-08] MEDS: ALBUMIN HUMAN 25% 100 ML IV SCH ×3 (06:22→21:42)
[2020-10-08] MEDS: CEFTRIAXONE 2 GM in DEXTROSE 5% 50 ML IVPB SCH (08:43)
[2020-10-08] MEDS: DEXAMETHASONE 4 MG/ML, 1ML IVPush SCH (08:44)
[2020-10-08] MEDS: ASCORBIC ACID 500 MG TABLET PO SCH ×2 (08:44→21:24)
[2020-10-08] MEDS: ZINC SULFATE 220 MG CAPSULE PO SCH (08:44)
[2020-10-08] MEDS: MIDODRINE 5 MG TABLET PO SCH ×3 (08:45→21:23)
[2020-10-08] MEDS: AZITHROMYCIN 500 MG TABLET PO SCH (08:45)
[2020-10-08] MEDS: SODIUM CHLORIDE FLUSH 10ML SYR IVF SCH ×2 (08:45→21:24)
[2020-10-08] MEDS: FENTANYL PF 1,000 MCG in SODIUM CHLORIDE 0.9% 80 ML IV PRN ×2 (11:22→21:23)
[2020-10-08] MEDS: PROPOFOL 100 ML IV PRN ×2 (14:54→21:23)
[2020-10-08] MEDS: PANTOPRAZOLE 40 MG IV IV SCH (21:24)
[2020-10-09] MEDS: REMDESIVIR 100 MG in SODIUM CHLORIDE 0.9% 250 ML IVPB SCH ×2 (00:06→22:44)
[2020-10-09] MEDS: PROPOFOL 100 ML IV PRN ×6 (00:06→22:43)
[2020-10-09] MEDS: INSULIN LISPRO 100 UNITS/ML, PEN SQ-INSULIN SCH (03:00)
[2020-10-09 04:54] LABS: MEAN CORPUSCULAR HEMOGLOBIN 40.8 pg (27.0-34.8); MEAN CORPUSCULAR HGB CONC 34.5 g/dL (32.4-35.8); MEAN PLATELET VOLUME 9.1 fL (7.4-10.4); RED BLOOD COUNT 2.21 x10^6/uL (3.82-5.3); RED CELL DISTRIBUTION WIDTH 16.6 % (9.6-15.2)
[2020-10-09 04:57] LABS: MICROSCOPIC INDICATED
[2020-10-09 05:00] LABS: POTASSIUM,URINE RANDOM 54 mmol/L
[2020-10-09 05:02] LABS: PLATELET COUNT 16 x10^3/uL (130-400)
[2020-10-09 05:03] LABS: ALBUMIN 2.8 g/dL (3.4-5.0); ANION GAP 9 mmol/L (5-15); CALCIUM 7.7 mg/dL (8.5-10.1); CHLORIDE 109 mmol/L (98-107); CHLORIDE,URINE RANDOM < 10 mmol/L; SODIUM,URINE RANDOM < 5 mmol/L
[2020-10-09 05:07] LABS: ALKALINE PHOSPHATASE 97 U/L (45-117); BILIRUBIN,TOTAL 8.4 mg/dL (0.2-1.0); CREATININE 2.46 mg/dL (0.55-1.02)
[2020-10-09 05:08] LABS: % IRON SATURATION 49 % (20-55); ALANINE AMINOTRANSFERASE 37 U/L (12-78); IRON LEVEL 39 mcg/dL (50-170); TOTAL IRON BINDING CAPACITY 79 mcg/dL (250-450)
[2020-10-09 05:09] LABS: CREATINE KINASE, TOTAL 39 U/L (26-192); TRIGLYCERIDES 304 mg/dL (50-200)
[2020-10-09 05:26] LABS: BAND#(MANUAL) 2.77 x10^3/uL; BANDS%(MANUAL) 21 % (0-7); LYMPHS% (MANUAL) 3 % (22-44); MONOS#(MANUAL) 0.13 x10^3/uL (0.3-2.7); MONOS% (MANUAL) 1 % (2-9); SEGS% (MANUAL) 75 % (42-75)
[2020-10-09 05:27] LABS: <PLATELET ESTIMATE> DECREASED; <PLT MORPHOLOGY> NORMAL PLT MORPH; ANISOCYTOSIS 1+; OVALOCYTES 1+
[2020-10-09] MEDS: METRONIDAZOLE PMX 500MG/100ML 100 ML IV SCH ×3 (06:16→21:31)
[2020-10-09] MEDS: ALBUMIN HUMAN 25% 100 ML IV SCH ×3 (06:16→22:43)
[2020-10-09] MEDS: CEFTRIAXONE 2 GM in DEXTROSE 5% 50 ML IVPB SCH (08:47)
[2020-10-09] MEDS: MIDODRINE 5 MG TABLET PO SCH ×3 (08:48→21:31)
[2020-10-09] MEDS: DEXAMETHASONE 4 MG/ML, 1ML IVPush SCH (08:48)
[2020-10-09] MEDS: ZINC SULFATE 220 MG CAPSULE PO SCH (08:48)
[2020-10-09] MEDS: ASCORBIC ACID 500 MG TABLET PO SCH ×2 (08:48→21:30)
[2020-10-09] MEDS: SODIUM CHLORIDE FLUSH 10ML SYR IVF SCH ×2 (08:49→21:31)
[2020-10-09] MEDS: THIAMINE 100MG TABLET PO SCH (08:49)
[2020-10-09] MEDS: AZITHROMYCIN 500 MG TABLET PO SCH (08:49)
[2020-10-09] MEDS: FENTANYL PF 1,000 MCG in SODIUM CHLORIDE 0.9% 80 ML IV PRN ×2 (08:59→18:20)
[2020-10-09] MEDS: LACTULOSE 20 GM/30 ML UDC PO SCH ×3 (10:27→21:31)
[2020-10-09] MEDS ORDERED: ERGOCALCIFEROL 50,000 UNIT CAPSULE PO SCH (12:00)
[2020-10-09] MEDS ORDERED: ASCORBIC ACID 250 MG TAB ONE (21:24)
[2020-10-09] MEDS: PANTOPRAZOLE 40 MG IV IV SCH (21:31)
[2020-10-10] MEDS: FENTANYL PF 1,000 MCG in SODIUM CHLORIDE 0.9% 80 ML IV PRN (03:33)
[2020-10-10] MEDS: METRONIDAZOLE PMX 500MG/100ML 100 ML IV SCH ×2 (05:48→13:29)
[2020-10-10 05:50] LABS: MEAN CORPUSCULAR HEMOGLOBIN 41.4 pg (27.0-34.8); MEAN CORPUSCULAR HGB CONC 32.9 g/dL (32.4-35.8); MEAN PLATELET VOLUME 11.7 fL (7.4-10.4); PLATELET COUNT 61 x10^3/uL (130-400); RED CELL DISTRIBUTION WIDTH 18.8 % (9.6-15.2)
[2020-10-10 05:59] LABS: ANION GAP 17 mmol/L (5-15); CALCIUM 7.8 mg/dL (8.5-10.1); CHLORIDE 107 mmol/L (98-107); CREATININE 3.54 mg/dL (0.55-1.02)
[2020-10-10] MEDS: PROPOFOL 100 ML IV PRN ×3 (06:30→16:29)
[2020-10-10] MEDS: ALBUMIN HUMAN 25% 100 ML IV SCH ×2 (06:30→16:05)
[2020-10-10] MEDS: DEXTROSE 50%, 50ML SYRINGE IVPush PRN ×3 (06:51→10:49)
[2020-10-10 07:11] LABS: BAND#(MANUAL) 3.22 x10^3/uL; BANDS%(MANUAL) 8 % (0-7); LYMPH#(MANUAL) 1.61 x10^3/uL (1-3.4); LYMPHS% (MANUAL) 4 % (22-44); METAMYELOCYTES% (MANUAL) 2 % (0-1); MONOS% (MANUAL) 2 % (2-9); SEG#(MANUAL) 33.77 x10^3/uL (1.8-6.8); SEGS% (MANUAL) 84 % (42-75)
[2020-10-10 07:12] LABS: <PLATELET ESTIMATE> DECREASED; ANISOCYTOSIS 1+; LARGE PLATELETS 1+
[2020-10-10 07:13] LABS: PMNS WITH VACUOLES 1+; POLYCHROMASIA 1+
[2020-10-10] MEDS: CEFTRIAXONE 2 GM in DEXTROSE 5% 50 ML IVPB SCH (07:40)
[2020-10-10] MEDS: SODIUM BICARBONATE 8.4% 150 MEQ in DEXTROSE 5% 1,000 ML IV SCH ×2 (07:40→18:29)
[2020-10-10] MEDS: DEXAMETHASONE 4 MG/ML, 1ML IVPush SCH (09:00)
[2020-10-10] MEDS ORDERED: DEXAMETHASONE 4 MG/ML, 5ML ONE (10:20)
[2020-10-10] MEDS: SODIUM CHLORIDE FLUSH 10ML SYR IVF SCH (10:33)
[2020-10-10] MEDS: ZINC SULFATE 220 MG CAPSULE PO SCH (10:33)
[2020-10-10] MEDS: AZITHROMYCIN 500 MG TABLET PO SCH (10:33)
[2020-10-10] MEDS: THIAMINE 100MG TABLET PO SCH (10:33)
[2020-10-10] MEDS: MIDODRINE 5 MG TABLET PO SCH ×2 (10:33→16:05)
[2020-10-10] MEDS: ASCORBIC ACID 500 MG TABLET PO SCH (10:34)
[2020-10-10] MEDS: LACTULOSE 20 GM/30 ML UDC PO SCH ×2 (10:34→16:05)
[2020-10-10] MEDS: NOREPINEPHRINE 8 MG in SODIUM CHLORIDE 0.9% 242 ML IV PRN (13:44)
[2020-10-10] MEDS: LORazepam 2 MG/ML, 1ML IVPush PRN ×3 (16:29→18:48)
[2020-10-10] MEDS ORDERED: morphine SULFATE 10 MG/ML, 1ML ONE (20:03)
[2020-10-10] MEDS ORDERED: MORPHINE SULFATE 4 MG/ML, 1ML IV ONE (20:30)
[2020-10-10] MEDS ORDERED: MORPHINE SULFATE 4 MG/ML, 1ML IV PRN (20:30)
[2020-10-10] MEDS ORDERED: ONDANSETRON 2MG/ML, 2ML IV PRN (20:30)
[2020-10-10] MEDS ORDERED: LORazepam 2 MG/ML, 1ML IV PRN (20:30)
[2020-10-10] MEDS ORDERED: LORazepam 2 MG/ML, 1ML IV ONE (20:30)
[2020-10-10] MEDS ORDERED: ATROPINE OPHTH SOLN 1%, 5ML PO PRN (20:30)
== END 2020-10-10 22:53 | DRG 870 ==
LOC: ED 17:46 → EDIP 18:36 → CCU 20:53
PROVIDERS: ADMIT Internal Medicine; ATTEND Internal Medicine
PROC: 0W9G3ZZ Drainage of Peritoneal Cavity, Percutaneous Approach (ICD-10-PCS; 2020-10-05)
PROC: 30233R1 Transfusion of Nonautologous Platelets into Peripheral Vein, Percutaneous Approach (ICD-10-PCS; 2020-10-05)
PROC: XW033E5 Introduction of Remdesivir Anti-infective into Peripheral Vein, Percutaneous Approach, New Technology Group 5 (ICD-10-PCS; 2020-10-05)
PROC: 5A09357 Assistance with Respiratory Ventilation, Less than 24 Consecutive Hours, Continuous Positive Airway Pressure (ICD-10-PCS; 2020-10-05)
PROC: 5A1955Z Respiratory Ventilation, Greater than 96 Consecutive Hours (ICD-10-PCS; principal; 2020-10-06)
PROC: 0BH17EZ Insertion of Endotracheal Airway into Trachea, Via Natural or Artificial Opening (ICD-10-PCS; 2020-10-06)
PROC: 0B9M8ZZ Drainage of Bilateral Lungs, Via Natural or Artificial Opening Endoscopic (ICD-10-PCS; 2020-10-06)
PROC: 0T9B70Z Drainage of Bladder with Drainage Device, Via Natural or Artificial Opening (ICD-10-PCS; 2020-10-09)
DX: A41.89 Other specified sepsis (principal); R65.21 Severe sepsis with septic shock; U07.1 COVID-19; J96.01 Acute respiratory failure with hypoxia; N17.0 Acute kidney failure with tubular necrosis; E43 Unspecified severe protein-calorie malnutrition; J69.0 Pneumonitis due to inhalation of food and vomit; Z68.41 Body mass index [BMI] 40.0-44.9, adult; E87.1 Hypo-osmolality and hyponatremia; D68.4 Acquired coagulation factor deficiency; E87.4 Mixed disorder of acid-base balance; N25.81 Secondary hyperparathyroidism of renal origin; E66.01 Morbid (severe) obesity due to excess calories; K70.31 Alcoholic cirrhosis of liver with ascites; D50.9 Iron deficiency anemia, unspecified; D69.6 Thrombocytopenia, unspecified; K72.90 Hepatic failure, unspecified without coma; R80.9 Proteinuria, unspecified; E87.8 Other disorders of electrolyte and fluid balance, not elsewhere classified; F32.9 Major depressive disorder, single episode, unspecified; F41.9 Anxiety disorder, unspecified; N81.10 Cystocele, unspecified; M19.90 Unspecified osteoarthritis, unspecified site; Z90.49 Acquired absence of other specified parts of digestive tract; Z51.5 Encounter for palliative care; Z66 Do not resuscitate; E55.9 Vitamin D deficiency, unspecified; Z88.2 Allergy status to sulfonamides; Z88.5 Allergy status to narcotic agent; Z88.8 Allergy status to other drugs, medicaments and biological substances
CPT/HCPCS: 31622; 36415; 36430; 36600; 49083; 70450; 71045; 80048; 80053; 80074; 81001; 82140; 82306; 82330; 82436; 82550; 82570; 82728; 82803; 82962; 83540; 83550; 83605; 83690; 83735; 83930; 83935; 83970; 84100; 84133; 84145; 84156; 84300; 84478; 84550; 85025; 85610; 86850; 86900; 87070; 87081; 87086; 87106; 87205; 88112; 88305; 93005; 94002; 94003; 96374; 99291; G0378; J0456; J0696; J1100; J1940; J2250; J2405; J2543; J2704; J3010; J7070; P9047; C9113; J2060; J7050; P9035